=== PATIENT | male | born 1960 | race Caucasian/White ===

== ENCOUNTER 2017-07-22 10:12 | Emergency (ER) | payer OTHER, MEDICARE, BC ==
[~2017-07-22] VITALS: Ht 198.1 cm; Wt 136.1 kg
[~2017-07-22 10:12] MED LIST: BUPR150ER PO; CEPH500 PO; DIAZ10 PO; DULO30 PO; MORP15ER PO; Morphine Sulfat15 MG PO; NAPR500ERA PO; OXYC10ER PO; Percocet 5-3251 EACH PO
== END 2017-07-22 11:47 | disposition home or self-care (01) ==
LOC: ER 10:12
DX: M17.12 Unilateral primary osteoarthritis, left knee (principal); F17.200 Nicotine dependence, unspecified, uncomplicated; Z88.1 Allergy status to other antibiotic agents; Z79.1 Long term (current) use of non-steroidal anti-inflammatories (NSAID); Z79.899 Other long term (current) drug therapy
CPT/HCPCS: 73562-LT; 99283

== ENCOUNTER → 2018-07-11 | Outpatient (CLI) | payer MEDICARE, BC | END | disposition home or self-care (01) | LOC: LAB SHORT 17:41 → LAB 17:41 | DX: L08.9 Local infection of the skin and subcutaneous tissue, unspecified (principal) | CPT/HCPCS: 87070; 87205 ==